=== PATIENT | female | born 1960 | race Caucasian/White ===

== ENCOUNTER → 2021-02-14 11:13 | Outpatient (CLI) | payer OTHER, SELFPAY ==
--- NOTE | 2021-02-14 11:14 | DI.US.S_ITS ---
PROCEDURE: US PERIPH VENOUS LOW EXTREM LT INDICATIONS: FOLLOW UP DEEP VEIN THROMBOSIS TECHNIQUE: Real-time imaging, as well as color and pulse Doppler interrogation, were performed of the lower extremity deep veins from the inguinal ligament to the popliteal fossa. COMPARISON: Outside Facility, RG, US PERIPHERAL VENOUS LOWER EXT LT, 07/24/2020, 12:02. FINDINGS: The common femoral, femoral and popliteal veins are normally compressible, and free of intraluminal thrombus. Color and pulse Doppler demonstrate normal phasic intraluminal flow. There is normal augmentation response to distal compression maneuver. IMPRESSION: Negative for deep venous thrombosis, with resolution of the previously seen deep venous thrombosis. Dictated by: Agustin Gutierrez M.D. on 02/14/2021 at 11:05 Approved by: Agustin Gutierrez M.D. on 02/14/2021 at 11:06
== END ==
PROVIDERS: PCP Nurse Practitioner Family; Referring Provider Internal Medicine; Visit Provider Internal Medicine
DX: Z09 Encounter for follow-up examination after completed treatment for conditions other than malignant neoplasm (principal); Z86.718 Personal history of other venous thrombosis and embolism
CPT/HCPCS: 93971

== ENCOUNTER → 2023-11-08 12:41 | Outpatient (CLI) | payer MEDICARE, OTHER, SELFPAY ==
--- NOTE | 2023-11-08 12:46 | DI.RAD.S_ITS ---
PROCEDURE: XR LUMBAR SPINE 2-3V INDICATIONS: CHRONIC BILATERAL LOW BACK PAIN TECHNIQUE: 3 views of the lumbar spine were acquired. COMPARISON: Outside Facility, RG, CT ABDOMEN/PELVIS WITH CONTRAST, 07/24/2020, 15:29. FINDINGS: Bones: 5 [id number] vertebrae are present. There is normal bony alignment. No vertebral body compression fractures. No suspicious bony lesions. Severe degenerative changes including intervertebral disc space narrowing, endplate sclerosis, osteophytosis and facet sclerosis is present throughout the lumbar spine most severe at L1-2, L3-4, and L4-5. Soft tissues: Overlying bowel gas pattern is normal. No suspicious soft tissue calcifications. IMPRESSION: No acute bony abnormality. Severe degenerative change of the lumbar spine. Dictated by: Renata Barnard M.D. on 11/08/2023 at 15:07 Approved by: Renata Barnard M.D. on 11/08/2023 at 15:25
== END ==
PROVIDERS: PCP Registered Nurse; Referring Provider Registered Nurse; Visit Provider Registered Nurse
DX: M47.816 Spondylosis without myelopathy or radiculopathy, lumbar region (principal); M54.50 Low back pain, unspecified; G89.29 Other chronic pain
CPT/HCPCS: 72100

== ENCOUNTER → 2024-11-27 11:06 | Outpatient (CLI) | payer MEDICARE, OTHER, SELFPAY ==
--- NOTE | 2024-11-27 11:08 | DI.RAD.S_ITS ---
PROCEDURE: XR DEXA AXIAL SKELETON INDICATIONS: ROUTINE SCREENINGS COMPARISON: None. FINDINGS: Lumbar Spine: Bone mineral density 0.982 g/cm2, T score 0.0. Left Femoral Neck: Bone mineral density 0.854 g/cm2, T score 0.0 Left Hip: Bone mineral density 0.991 g/cm2, T score 0.4. Fracture Risk Calculation (when applicable): 10-year fracture risk of a major osteoporotic fracture 6.9 percent and of a hip fracture 0.3 percent. (T score greater or equal to -1.0 to: NORMAL) (T score from -1.1 to -2.4: OSTEOPENIA) (T score less than or equal to -2.5: OSTEOPOROSIS) IMPRESSION: Normal---recommend repeat DEXA as clinically indicated. Follow-up guidelines as follows: Osteoporosis: Consider a repeat DEXA and Vertebral Fracture Assessment (VFA) exam in 2 years or sooner if medically necessary, to reassess this patient's status. Osteopenia: Consider a repeat DEXA in 2-3 years to reassess this patient's status, or if there is a new clinical indication. Normal: Consider a repeat DEXA in 5 years or sooner, or if there is a new clinical indication. All treatment decisions require clinical judgment and consideration of individual patient factors, including patient preferences, comorbidities, previous drug use, risk factors not captured in the FRAX model (e.g., frailty, falls, vitamin D deficiency, increased bone turnover, interval significant decline in bone density ) and possible under- or over-estimation of fracture risk by FRAX. In addition, the NOF Guide recommends that FDA-approved medical therapies be considered in postmenopausal women and men age >= 50 years with a: * Hip or vertebral (clinical or morphometric) fracture * T-score of <=-2.5 at the spine or hip * Ten-year fracture probability by FRAX of >= 3% for hip fracture or >=20% for major osteoporotic fracture. Dictated by: Vijay Cooley M.D. on 11/28/2024 at 6:35 Approved by: Vijay Cooley M.D. on 11/28/2024 at 6:36
--- NOTE | 2024-11-27 11:08 | DI.MG.S_ITS ---
MM screening mammo BI: 11/27/2024. BI-RADS: 1 CLINICAL: 64-year old female for bilateral screening mammogram. Tyrer-Cuzick lifetime risk of 6.5%. Current reported family history of breast cancer: mother. PRIOR EXAMS Outside priors 10/04/2018, 04/14/2014. MAMMOGRAPHY TECHNIQUE: 2D and 3D (tomosynthesis) digital mammographic views obtained, with additional images as needed for full coverage. Current study was also evaluated with a Computer Aided Detection (CAD) system. DENSITY B. There are scattered areas of fibroglandular density. MAMMOGRAPHY FINDINGS Bilateral: No suspicious mass, asymmetry, microcalcification, or other abnormality seen. IMPRESSION: * No evidence of malignancy. RECOMMENDATIONS Bilateral * Annual screening mammography. OVERALL ASSESSMENT CATEGORY BI-RADS-1: Negative. The [employer] recommends annual screening mammography beginning at age 40 for women with average risk of breast cancer. ELECTRONICALLY SIGNED: Steven Vargas M.D. on 11/28/2024 at 08:05:09 AM PT Interpreting Station ID: [id number]
== END ==
PROVIDERS: PCP Family Medicine; Referring Provider Registered Nurse; Visit Provider Registered Nurse
DX: Z78.0 Asymptomatic menopausal state (principal); Z12.31 Encounter for screening mammogram for malignant neoplasm of breast; Z80.3 Family history of malignant neoplasm of breast; Z00.00 Encounter for general adult medical examination without abnormal findings
CPT/HCPCS: 77063; 77067; 77080